=== PATIENT | female | born 1960 | race Caucasian/White ===

== ENCOUNTER 2019-12-03 08:15 | Outpatient (CLI) | payer OTHER, SELFPAY ==
--- NOTE | ~2019-12-03 | MM_ITS ---
EXAMINATION: MM screening [facility] BI w alee HISTORY: Screening mammogram TECHNIQUE: Craniocaudal and mediolateral oblique 3-D tomosynthesis images were obtained and synthetic 2-D images were generated. CAD analysis was submitted and interpreted. COMPARISON: 08/08/2017, 07/04/2016, 07/04/2014, 06/20/2014 BREAST PARENCHYMAL COMPOSITION: The breasts are heterogeneously dense, which may obscure small masses . FINDINGS: There is no evidence of suspicious mass, calcification, or architectural distortion to sugg est malignancy in either breast. There has been no suspicious interval change. IMPRESSION: 1. No mammographic evidence of malignancy. 2. Recommend routine screening mammography in one year. BI-RADS Category 1: Negative Reviewed, dictated and finalized at location A.
== END 2019-12-03 08:16 | disposition home or self-care (01) ==
LOC: ANHIMG 08:17
PROVIDERS: PCP Family Medicine; Visit Provider Family Medicine
DX: Z12.31 Encounter for screening mammogram for malignant neoplasm of breast (principal)
CPT/HCPCS: 77063; 77067

== ENCOUNTER 2020-12-04 07:24 | Outpatient (CLI) | payer OTHER, SELFPAY ==
--- NOTE | ~2020-12-04 | MM_ITS ---
EXAMINATION: MM screening [facility] BI w alee HISTORY: Screening mammogram TECHNIQUE: Craniocaudal and mediolateral oblique 3-D tomosynthesis images were obtained and synthetic 2-D images were generated. CAD analysis was submitted and interpreted. COMPARISON: 12/03/2019, 08/08/2017, 07/04/2016 BREAST PARENCHYMAL COMPOSITION: There are scattered areas of fibroglandular density. FINDINGS: There is no evidence of suspicious mass, calcification, or architectural distortion to sugg est malignancy in either breast. There has been no suspicious interval change. IMPRESSION: 1. No mammographic evidence of malignancy. 2. Recommend routine screening mammography in one year. BI-RADS Category 1: Negative Reviewed, dictated and finalized at location A.
== END 2020-12-04 07:25 | disposition home or self-care (01) ==
LOC: ANHIMG 07:26
PROVIDERS: PCP Family Medicine; Visit Provider Family Medicine
DX: Z12.31 Encounter for screening mammogram for malignant neoplasm of breast (principal)
CPT/HCPCS: 77063; 77067

== ENCOUNTER 2022-02-04 00:27 | Day surgery (SDC) | payer OTHER, SELFPAY ==
[2022-01-21 08:19] VITALS: BMI 27.4
--- NOTE | 2022-02-03 10:46 | WPDANESEPPF ---
Anes - Initial Pre Proc Eval Procedure: Operation Date: 02/04/22 10:45 Proposed Procedures p Screening Colonoscopy - Melecio Phillips MD Date/Time: 02/03/22 10:46 Surgeon: Melecio Phillips MD Pre Op Diagnosis: neoplasm screening Patient Data Age: 61 Gender: F Height: 1.68 m Weight: 77.2 kg Allergies Allergy/AdvReac Type Severity Reaction Status Date / Time sulfamethizole Allergy Unknown Hives Verified 02/04/22 09:15 trimethoprim Allergy Unknown Hives Verified 02/04/22 09:15 sertraline AdvReac Intermediate abdominal Verified 02/04/22 09:15 pain,diarrhea Home Medications Medication Instructions Recorded Confirmed Type atorvastatin 20 mg tablet See Rx Instructions .Route 01/12/21 01/21/22 Rx .COMPLEX #90 tabs estradiol 0.01% (0.1 mg/gram) See Rx Instructions .Route 02/16/21 01/21/22 Rx vaginal cream .COMPLEX #42.5 grams multivitamin (Daily Multi-Vitamin 1 tablet PO DAILY 12/21/21 01/21/22 History tablet) Patient hx anesthesia problems: none Family hx anesthesia problems: none Results Review: All pre-operative results and documents have been reviewed as part of the pre-operative evaluation. [facility] Past Medical History Medical History Adhesive capsulitis of right shoulder Cervical polyp 9.24.20 expelled / exam normal History of ectopic History of multiple miscarriages Hyperlipidemia Migraines Pneumonia Surgical History Surgical History H/O dilation and curettage Family History Family History Grandparent Diabetes mellitus Father Depression Family history of elevated blood lipids Family history of Alzheimer's disease Mother Patient's mother is in good health Other Family history of malignant neoplasm of breast Social History Social History Smoking status: Never smoker Second hand tobacco smoke exposure: No Alcohol intake: current Substance use: never Substance use type: does not use Living arrangements: with family Spiritual care concerns: No Anes - Eval Final PreProcedure Day of Procedure 02/03/22 10:46 Patient weight: overweight Heart: regular rate and rhythm Lungs: clear to auscultation Airway: Mallampati scale class II Neurological: alert and oriented Last oral intake: >/= 8 hours ASA classification: II Emergent: no Anesthetic plan: proceed Anesthesia type and monitoring: general GIVS and standard monitoring Results Review: All pre-operative results and documents have been reviewed as part of the pre-operative evaluation. Informed Consent: The patient's anesthetic plan and its attendant risks and benefits were discussed with the patient/family/POA. Questions were solicited and answers provided to the satisfaction of the patient/family/POA.
[2022-02-04 09:17] VITALS: BP 111/80; PULSE 78; RESP 20; TEMP 36.1; O2SAT 100; BMI 27.2
[2022-02-04] MEDS: LACTATED RINGERS 1,000 ML 150 ML IV CONT (09:27)
--- NOTE | 2022-02-04 10:11 | PM.HPGS ---
History of Present Illness History of Present Illness Consent: Risks, benefits, and alternatives have been discussed and questions answered. Patient agrees to proceed with procedure. Chief complaint: neoplasm screening Narrative: Alejandra Rosales is a 61 year old female here for screening colonoscopy, last one 10 years ago Review of Systems Constitutional: Constitutional: Denies headache(s) and Denies weakness Eyes: Eyes: Denies blurry vision ENT: Reports Normal hearing present, Denies headache(s) and Denies neck pain Cardiovascular: Cardiovascular: Denies chest pain and Denies dyspnea Respiratory: Respiratory: Denies dyspnea Gastrointestinal: Gastrointestinal: Reports no additional gastrointestinal complaints Genitourinary: Genitourinary: Denies dysuria Musculoskeletal: Musculoskeletal: Denies neck pain Integumentary/Breasts: Skin/Breast: Denies dry skin Neurologic: Reports Normal hearing present, Denies headache(s) and Denies weakness Psychiatric: Psychiatric: Denies anxiety Endocrine: Endocrine: Denies change in body appearance Hematologic/Lymphatic: Hematologic/Lymphatic: Denies easy bleeding Allergic/Immunologic: Allergic/Immunologic: Denies urticaria PMFSH Past Medical History Medical History (Updated 02/04/22 @ 10:11 by Melecio Phillips MD) Adhesive capsulitis of right shoulder Cervical polyp 9.24.20 expelled / exam normal Colon cancer screening History of ectopic History of multiple miscarriages Hyperlipidemia Migraines Pneumonia Surgical History Surgical History H/O dilation and curettage Family History Family History Grandparent Diabetes mellitus Father Depression Family history of elevated blood lipids Family history of Alzheimer's disease Mother Patient's mother is in good health Other Family history of malignant neoplasm of breast Social History Social History Smoking status: Never smoker Second hand tobacco smoke exposure: No Alcohol intake: current Substance use: never Substance use type: does not use Living arrangements: with family Spiritual care concerns: No Meds Home Medications and Allergies Home Medications Medication Instructions Recorded Confirmed Type atorvastatin 20 mg tablet See Rx Instructions .Route 01/12/21 01/21/22 Rx .COMPLEX #90 tabs estradiol 0.01% (0.1 mg/gram) See Rx Instructions .Route 02/16/21 01/21/22 Rx vaginal cream .COMPLEX #42.5 grams multivitamin (Daily Multi-Vitamin 1 tablet PO DAILY 12/21/21 01/21/22 History tablet) Allergies Allergy/AdvReac Type Severity Reaction Status Date / Time sulfamethizole Allergy Unknown Hives Verified 02/04/22 09:15 trimethoprim Allergy Unknown Hives Verified 02/04/22 09:15 sertraline AdvReac Intermediate abdominal Verified 02/04/22 09:15 pain,diarrhea Vital Signs Vital Signs - 24 hr 02/04/22 09:17 Temperature 97.0 F L Pulse Rate 78 Respiratory Rate 20 Blood Pressure 111/80 Pulse Oximetry 100 Oxygen Delivery Room Air Exam Const: General: comfortable and no acute distress HENMT: General nose exam: Normal nares present Eyes: General: appearance normal, both eyes and all related structures Neck: Neck: no JVD Resp: Auscultation: clear to auscultation bilaterally Cardio: Rate: regular rate Rhythm: regular rhythm GI: Inspection: non-distended GI Palp: Yes Soft to palpation Skin: General skin exam: normal color Neuro: General: gait normal Speech: normal speech Extrem: General: normal to inspection Psych: Mental Status: mental status grossly normal Assessment and Plan Assessment and plan (1) Colon cancer screening: Code(s): Z12.11 - Encounter for screening for malignant neoplasm of colon Status: Acute Asses
[2022-02-04 10:36] VITALS: BP 87/59; PULSE 65; RESP 20; O2SAT 97
[2022-02-04 10:46] VITALS: BP 96/63; PULSE 58; RESP 19; O2SAT 96
[2022-02-04 10:56] VITALS: BP 102/74; PULSE 60; RESP 15; O2SAT 100
== END 2022-02-04 11:11 | disposition home or self-care (01) ==
PROVIDERS: PCP Family Medicine; Visit Provider Internal Medicine Gastroenterology
PROC: 0DJD8ZZ Inspection of Lower Intestinal Tract, Via Natural or Artificial Opening Endoscopic (ICD-10-PCS; CPT 45378; principal; 2022-02-04 10:45)
DX: Z12.11 Encounter for screening for malignant neoplasm of colon (principal); K63.5 Polyp of colon; K64.8 Other hemorrhoids; E78.5 Hyperlipidemia, unspecified
CPT/HCPCS: 45385; 88305; J2001; J2704; J7120

== ENCOUNTER 2022-07-20 09:42 | Outpatient (CLI) | payer BC, SELFPAY ==
--- NOTE | ~2022-07-20 | MM_ITS ---
EXAMINATION: MM screening [facility] BI w alee HISTORY: Screening mammogram TECHNIQUE: Craniocaudal and mediolateral oblique 3-D tomosynthesis images were obtained and synthetic 2-D images were generated. CAD analysis was submitted and interpreted. COMPARISON: 12/04/2020, 12/03/2019, 08/08/2017 bilateral screening mammogram examinations BREAST PARENCHYMAL COMPOSITION: The breasts are heterogeneously dense, which may obscure small masses . FINDINGS: There is no evidence of suspicious mass, calcification, or architectural distortion to sugg est malignancy in either breast. There has been no suspicious interval change. IMPRESSION: 1. No mammographic evidence of malignancy. 2. Recommend routine screening mammography in one year. BI-RADS Category 1: Negative Reviewed, dictated and finalized at location A. OR INSPECTOR
--- NOTE | ~2022-07-20 | DEXA_ITS ---
Bone Density Report Name: JOYA RAO Age: 62 Sex: Female Ethnicity: White Date of : 1960 Indication: postmenopausal; screening for osteoporosis; Referring Provider: OCTAVIO BURNS Study: Bone densitometry was performed. Exam Date: July 20, 2022 Accession number: [id number] Bone Density: Region BMD T-score Z-score Classification AP Spine(L1-L4) 0.930 -1.1 0.4 Osteopenia Femoral Neck (Left) 0.754 -0.9 0.5 Normal Total Hip (Left) 0.994 0.4 1.4 Normal Femoral Neck (Right) 0.747 -0.9 0.4 Normal Total Hip (Right) 0.985 0.4 1.4 Normal Total Hip Mean 0.990 0.4 1.4 Normal World Health Organization criteria for BMD impression classify patients as: Normal (T-score at or above -1.0), Osteopenia (T-score between -1.0 and -2.5), or Osteoporosis (T-score at or below -2.5). 10-year Fracture Risk(1): Major Osteoporotic Fracture 7.2% Hip Fracture 0.4% Reported Risk Factors: [place] (), Neck BMD=0.754, BMI=28.2 (1) FRAX(R) Version 3.08. Fracture probability calculated for an untreated patient. Fracture probability may be lower if the patient has received treatment. Clinical Information Provided by Patient: Patient maximum height was 67 Menopause Age: 60 No regular weight bearing exercise Does not regularly consume dairy products Drinks caffeinated beverages Onset of menses at age 17 Number of children 0 Missed period for more than 6 months in a row Impression: The patient has low bone mass, based on the Total Spine T-score. The patient has an estimated ten-year risk of hip fracture of 0.4% and an estimated ten-year risk of major fracture of 7.2%, based on the WHO FRAX algorithm. Discussion: BONE DENSITY IS LOW AT ONE OR MORE SKELETAL SITES. This patient's lowest T-score is low at one or more skeletal sites. It meets the World Health Organization's (WHO) criteria for ?low bone mass? (T-score between -1.0 and -2.5). The patient's 10-year risk of fracture as calculated by FRAX is less than the threshold where pharmacological therapy is recommended by the National Osteoporosis Foundation (NOF). However, all treatment decisions require clinical judgment and consideration of individual patient factors, including patient preferences, comorbidities, previous drug use, risk factors not captured in the FRAX model (e.g., frailty, falls, vitamin D deficiency, increased bone turnover, interval significant decline in bone density) and possible under or overestimation of fracture risk by FRAX. The patient should follow a healthful lifestyle (good nutrition with adequate calcium and vitamin D, and appropriate weight-bearing exercise). Follow-Up: Consider repeating this study in 2 to 3 years to reassess this patient's status, or sooner if there is some new clinical indication.
== END 2022-07-20 09:43 | disposition home or self-care (01) ==
LOC: ANHIMG 09:48
PROVIDERS: PCP Family Medicine; Visit Provider Student in an Organized Health Care Education/Training Program
DX: Z12.31 Encounter for screening mammogram for malignant neoplasm of breast (principal); Z78.0 Asymptomatic menopausal state; M85.88 Other specified disorders of bone density and structure, other site
CPT/HCPCS: 77063; 77067; 77080

== ENCOUNTER 2023-07-31 15:05 | Outpatient (CLI) | payer BC, SELFPAY ==
--- NOTE | ~2023-07-31 | MM_ITS ---
EXAMINATION: MM screening [facility] BI w alee HISTORY: Screening mammogram TECHNIQUE: Craniocaudal and mediolateral oblique 3-D tomosynthesis images were obtained and synthetic 2-D images were generated. CAD analysis was submitted and interpreted. COMPARISON: 07/20/2022, 12/04/2020, 12/03/2019 bilateral screening mammogram examinations BREAST PARENCHYMAL COMPOSITION: The breasts are heterogeneously dense, which may obscure small masses . FINDINGS: There is no evidence of suspicious mass, calcification, or architectural distortion to sugg est malignancy in either breast. There has been no suspicious interval change. IMPRESSION: 1. No mammographic evidence of malignancy. 2. Recommend routine screening mammography in one year. BI-RADS Category 1: Negative Reviewed, dictated and finalized at location A.
== END 2023-07-31 15:06 | disposition home or self-care (01) ==
LOC: ANHIMG 15:08
PROVIDERS: PCP Family Medicine; Visit Provider Family Medicine
DX: Z12.31 Encounter for screening mammogram for malignant neoplasm of breast (principal)
CPT/HCPCS: 77063; 77067

== ENCOUNTER 2023-08-04 07:59 | Outpatient (CLI) | payer BC, SELFPAY ==
[2023-08-04 14:51] LABS: Alanine Aminotransferase 46 U/L (6-35); Albumin Level 4.1 g/dL (3.5-5.1); Alkaline Phosphatase 87 U/L (38-126); Anion Gap 5 mmol/L (8-16); Aspartate Amino Transferase 64 U/L (14-36); Bilirubin,Total 0.7 mg/dL (0.2-1.3); Blood Urea Nitrogen 17 mg/dL (7-17); Carbon Dioxide 28 mmol/L (22-30); Chloride 108 mmol/L (98-107); Cholesterol 202 mg/dL (0-200); Estimated Glomerular Filt Rate > 60; Glucose 97 mg/dL (65-110); HDL Direct 41 mg/dL; Potassium 4.4 mmol/L (3.4-5.0); Sodium 141 mmol/L (137-145); Triglycerides 269 mg/dL (<150)
[2023-08-04 15:11] LABS: Basophils Absolute Auto 0.1 K/mm3 (0.0-0.1); Basophils Percent Auto 0.6 % (0.2-1.2); Eosinophils Absolute Auto 0.2 K/mm3 (0-0.3); Eosinophils Percent Auto 2.1 % (0-4.4); Hematocrit 44.3 % (37.0-47.0); Hemoglobin 13.9 g/dL (12.0-15.0); Immature Granulocyte Absolute 0.04 K/mm3 (0.00-0.031); Immature Granulocyte Percent A 0.5 % (0-0.5); Lymphocytes Absolute Auto 2.85 K/mm3 (0.9-3.2); Lymphocytes Percent Auto 35.4 % (18.3-44.2); Mean Corpuscular HGB Conc 31.4 g/dl (32-36); Mean Corpuscular Hemoglobin 30.8 pg (26-34); Mean Corpuscular Volume 98.2 fl (80-100); Mean Platelet Volume 9.3 fl (7.4-10.4); Monocytes Absolute Auto 0.6 K/mm3 (0.1-0.6); Monocytes Percent Auto 7.2 % (2.6-8.5); Neutrophils Absolute Auto 4.4 K/mm3 (1.3-6.7); Neutrophils Percent Auto 54.2 % (45.5-73.1); Platelet Count Result 290 k/mm3 (150-375); Red Blood Count 4.51 M/mm3 (4.2-5.4); Red Cell Distribution Width 13.9 % (11.5-14.5); White Blood Count 8.1 K/mm3 (4.5-10.0)
[2023-08-04 15:38] LABS: Hepatitis C Virus Antibody Negative (Negative)
[2023-08-04 17:06] LABS: LDL Cholesterol Direct 104 mg/dL
== END 2023-08-04 08:00 | disposition home or self-care (01) ==
LOC: ANHGOSHLAB 08:01
PROVIDERS: PCP Family Medicine; Visit Provider Family Medicine
DX: Z00.00 Encounter for general adult medical examination without abnormal findings (principal); Z78.0 Asymptomatic menopausal state; Z11.59 Encounter for screening for other viral diseases
CPT/HCPCS: 36415; 80053; 80061; 82306; 82607; 85025; 86803

== ENCOUNTER 2023-08-11 07:41 | Outpatient (CLI) | payer BC, SELFPAY ==
--- NOTE | ~2023-08-11 | US_ITS ---
Limited Abdominal Sonogram: Real-time sonographic imaging of the right upper quadrant was performed. Clinical History: Abnormal lab work Findings: The liver appears mildly echogenic slightly heterogeneous, with no evidence of mass lesion or bile duct dilatation. Main portal vein demonstrates normal direction of flow. The gallbladder is well distended, and appears normal with no evidence of gallstone or wall thickening. The common bile duct measures 4 mm. The visualized pancreas, aorta, and IVC are unremarkable. Impression: Suspected fatty infiltration of liver versus possibly other chronic liver disease. Correlate clinical ly. Reviewed, dictated and finalized at location M. Impression: Suspected fatty infiltration of liver versus possibly other chronic liver disea se. Correlate clinically.
== END 2023-08-11 07:42 ==
PROVIDERS: PCP Family Medicine; Visit Provider Family Medicine
DX: R79.89 Other specified abnormal findings of blood chemistry (principal)
CPT/HCPCS: 76705

== ENCOUNTER 2023-09-13 09:00 | Outpatient (RCR) | payer BC, SELFPAY ==
--- NOTE | 2023-08-15 16:37 | OPREHPOC ---
Outpatient Therapy Plan of Care This is a Multidisciplinary Plan of Care that may contain components documented by all disciplines (PT, OT, and ST.) PT Problem 1 PT Problem #1 Knowledge Deficit PT Goal 1 Goal Pt to be IND with issued HEP Target Visit 8 PT Problem 2 PT Problem #2 Impaired Strength PT Goal 1 Goal Pt to demonstrate a functional lift and carry with 20lb without an increase in symptoms. Target Visit 8 PT Goal 2 Goal Pt to demonstrate a functional squat without compensations. PT Problem 3 PT Problem #3 Impaired Functional Mobil PT Goal 1 Goal Pt to report no increase in pain with stair navigation. PT Problem 4 PT Problem #4 Impaired Flexibility PT Goal 1 Goal Pt to improve prone knee flexion to 120 deg Target Visit 8
--- NOTE | 2023-08-15 16:37 | PTOPEVAL1 ---
Assessment and note entered by Wally Lin, PT, DPT Evaluation Information Assessment Status Evaluation Diagnosis pino knee pain Subjective Information Pt reports pino knee pain when she is squatting to pick something up or when she works in the garden. She states both knees are achy when she is squatting. States her knees have given out multiple times recently, once resulting in a fall. She states her L knee is crunchy. The most limiting thing is going up and down the stairs. Reported Pain Level Pain Score 0: Self Report Assessment PT Clinical Summary Alejandra presents to therapy today for her initial evaluation with a diagnosis of pino knee pain. Today she demonstrates hip flexor tightness, hip and knee weakness, and decreased body awareness contributing to poor movement patterns. She demonstrates poor body mechanics with functional squatting and sit to stand transfers. Skilled therapy services are indicated to address the deficits noted above, to manage pain, and to improve overall functional mobility. Plan of Care Interventions Electrical Stimulation,Gait Training,Hot Pack/Cold Pack,Manual Therapy,Neuro Re-education,Patient/ Caregiver Educati,Therapeutic Activities, Therapeutic Exercise PT Services Indicated Yes Treatment Frequency and 2x/wk for 8 visits Duration These treatments will address the objective and functional deficits as defined above. The patient will be advanced safely and appropriately in order for the patient to progress towards his/her prior level of function. Additional exercises will be introduced and as well as a comprehensive home exercise program upon discharge, if needed, ?to ensure carryover of functional gains achieved in the clinic. This treatment plan has been reviewed and agreement upon by the patient.
--- NOTE | 2023-09-13 09:56 | PTOPDC ---
Assessment and note entered by Wally Lin, PT, DPT Evaluation Information Assessment Status Discharge Diagnosis pino knee pain Subjective Information Pt states overall her knee is improving. She was able to work on 4 hours a yard work yesterday without pain. She does report increased muscle soreness today however. Pt states stairs still continue to be her largest limitation but they are progressing well. She has noticed less clicking and popping in her knees as well. Reported Pain Level Pain Score 0,1: Self Report Assessment PT Clinical Summary Alejandra presents to therapy today for her progress report following 8 visits of skilled therapy to treat her diagnosis of pino knee pain. Today she demonstrates improved hip and knee strength but still demonstrates some functional limitations d/t weakness on the L. She demonstrates improved body mechanics and awareness with has assisted with ADLs like yard work. She is making good progress towards her therapy goals and would like to continue working on her HEP IND.
== END 2023-09-13 13:09 | disposition home or self-care (01) ==
LOC: ANHGOSHPT 09:00
PROVIDERS: PCP Family Medicine; Visit Provider Family Medicine
DX: M25.561 Pain in right knee (principal); M25.562 Pain in left knee
CPT/HCPCS: 97110; 97140; 97161; 97530

== ENCOUNTER 2024-11-27 15:04 | Outpatient (CLI) | payer BC, SELFPAY ==
--- NOTE | ~2024-11-27 | MM_ITS ---
EXAMINATION: MM screening [facility] BI w alee HISTORY: Screening TECHNIQUE: Craniocaudal and mediolateral oblique 3-D tomosynthesis images were obtained and synthetic 2-D images were generated. CAD analysis was submitted and interpreted. COMPARISON: Comparison to multiple prior studies sequentially, with oldest reviewed study dated 07/04. BREAST PARENCHYMAL COMPOSITION: Not dense: There are scattered areas of fibroglandular density. FINDINGS: There is no evidence of suspicious mass, calcification, or architectural distortion to sugg est malignancy in either breast. There has been no suspicious interval change. IMPRESSION: 1. No mammographic evidence of malignancy. 2. Recommend routine screening mammography in one year. BI-RADS Category 1: Negative Reviewed, dictated and finalized at location A.
--- OUTSIDE RECORDS SUMMARY | 2024-11-27 15:08 | XMS_ITS | Referral Summary ---
Author Organization [facility] [place] [address] Address [address] [place] [address] Care Team Providers Care Ammunition Components Inspector Name Role Phone Evon Miranda MD Primary Care Provider + Active Problems Problem Noted Date Diagnosed Date Abnormal findings on diagnostic imaging of breas t 07/09/2014 Social History Tobacco Use Types Packs/Day Years Used Date Smoking Tobacco: Never Personal Safety Answer Date Recorded Getting School Help Needed Not on file 08/04 Comments Unknown Sex and Gender Information Value Date Recorded Sex Assigned at Not on file 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
--- OUTSIDE RECORDS SUMMARY | 2024-11-27 15:08 | XMS_ITS | Clinical Summary ---
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
== END 2024-11-27 15:05 | disposition home or self-care (01) ==
LOC: ANHIMG 15:06
PROVIDERS: PCP Family Medicine; Visit Provider Family Medicine
DX: Z12.31 Encounter for screening mammogram for malignant neoplasm of breast (principal)
CPT/HCPCS: 77063; 77067

== ENCOUNTER 2024-12-03 08:26 | Outpatient (CLI) | payer BC, SELFPAY ==
[2024-11-25 14:38] VITALS: BMI 29.1
--- NOTE | 2024-11-25 14:39 | PC.NURSE ---
Pre Radiology instructions Report to the outpatient bill karla on date _[id number]_ at time _0830_ for procedure Time: _1030_ YOU MAY BE MONITORED AT HOSPITAL FOR UP TO 4 HOURS AFTER YOUR PROCEDURE. A visitor will be allowed to accompany the patient into the hospital. You and your visitor will be asked to self-screen and do not enter if you have any COVID symptoms. A mask is OPTIONAL within the hospital. Patients are to have no food or drink 6 hours prior to procedure time Driving will be restricted after the procedure, you must have a person to drive you home. Labs will be drawn in preop area and once reviewed, you will be taken to radiology area for procedure. When the procedure is completed, you will be taken to outpatient where you will be monitored for several hours. You may have one visitor in this area. Other than holding anti-coagulants, patient may take other medication(s) as scheduled. Prior to your appointment date patients are instructed to hold anti-coagulants after discussing with ordering provider to stop. If unable to discontinue anti-coagulants please notify radiologist. ? No aspirin or warfarin (Coumadin) for 7 days prior to the procedure. ? No clopidogrel (Plavix), ticagrelor (Brilinta), prasugrel (Effient) or dabigatran (Pradaxa) for 5 days prior to the procedure. ? No rivaroxaban (Xarelto), apixaban (Eliquis), dipyridamole (Aggrenox or Persantine) or cilostazol (Pletal) for 2 days prior to the procedure. Medications to discontinue per physician: __None Date to take last dose: Please leave all valuables, including medications, at home the day of procedure. The hospital will not accept responsibility for valuables. Wear comfortable, loose fitting clothing.? Follow any additional instructions given to you from ordering provider. Telephone instructions given to __Aliee__and asked if any additional questions and then verbalized understanding. Patient advised to call scheduling provider office or registration scheduling [phone] if any additional questions.
[2024-12-03] VITALS (10 sets, daily range): BP systolic 120–137; BP diastolic 62–82; PULSE 55–68; RESP 14–16; TEMP 37; O2SAT 94–100; BMI 29.0
--- NOTE | ~2024-12-03 | US_ITS ---
EXAMINATION: US biopsy liver DATE: 12/03/2024 10:45 INDICATION: Possible autoimmune hepatitis TECHNIQUE: The procedure including the risks and benefits was discussed with the patient. Risks discu ssed included bleeding and infection. The patient understood the risks and agreed to proceed. The sk in overlying the liver was prepped and draped in usual sterile fashion. Anesthetic was administered with 1% lidocaine subcutaneously. An 18 gauge core biopsy needle was advanced under continuous ultra sound observation to the lesion of interest. 3 core biopsy specimens were obtained. The needle was removed and the entry site was cleaned and dressed. Post procedure ultrasound demonstrated no hemorr shilpa. FINDINGS: Ultrasound images demonstrate biopsy needle advanced into the left hepatic lobe. IMPRESSION: 1. Successful Ultrasound-guided random liver biopsy. Reviewed, dictated and finalized at location A.
--- OUTSIDE RECORDS SUMMARY | 2024-12-03 08:36 | XMS_ITS | Referral Summary ---
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
--- OUTSIDE RECORDS SUMMARY | 2024-12-03 08:36 | XMS_ITS | Clinical Summary ---
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
[2024-12-03 09:20] LABS: Platelet Count Result 244 k/mm3 (150-375)
[2024-12-03 09:38] LABS: INR 0.9; Prothrombin Time 12.3 Seconds (11.1-14.7)
--- NOTE | 2024-12-03 10:30 | S_PTH ---
PATIENT: Alejandra Rosales LOC: [facility]#:[id number] AGE/SX: 64/F ROOM: RE12/03/[address]: Denton Puckett MD : 1960 BED: DIS: 12/03/2024 SPEC #: [id number] RECD: 12/03/24 10:50 STATUS: INESSA REQ #: [id number] NAVDEEP: 12/03/24 10:[address]: Heidi Ochoa DEPT: [facility] Surgical RECD BY: Caryl Riggs ENTERED: 12/03/24 10:50 SP TYPE: Surgical OTHR DR: MD Benigno Hale MD Tissues: A - Liver Biopsy Procedures: Pas with Diastase Unstained Slides Hematoxylin and Eosin Stain Reticulum Stain Trichrome Stain Gross and Microscopic Level 5 Iron Stain
== END 2024-12-03 14:30 | disposition home or self-care (01) ==
PROVIDERS: PCP Family Medicine; Referring Provider Nurse Practitioner; Visit Provider Radiology Diagnostic Radiology
PROC: BF45ZZZ Ultrasonography of Liver (ICD-10-PCS; CPT 47000; principal; 2024-12-03 10:30)
DX: Z01.818 Encounter for other preprocedural examination (principal); K76.0 Fatty (change of) liver, not elsewhere classified; R79.89 Other specified abnormal findings of blood chemistry; R74.01 Elevation of levels of liver transaminase levels; R76.8 Other specified abnormal immunological findings in serum
CPT/HCPCS: 36415; 47000; 76942; 85049; 85610; 88307; 88312; 88313

== ENCOUNTER 2025-03-17 13:52 | Day surgery (SDC) | payer BC, SELFPAY ==
[2025-03-17] VITALS (12 sets, daily range): BP systolic 122–155; BP diastolic 64–91; PULSE 72–85; RESP 16–20; TEMP 36.3–36.7; O2SAT 97–100
--- NOTE | ~2025-03-17 | XR_ITS ---
EXAMINATION: XR chest 2V, 03/17/2025 15:38 CDT HISTORY: Abdominal pain COMPARISON: No comparisons available. Technique: 2 views obtained. Findings: The lungs are clear, no effusion. No pneumothorax. Heart is normal size. Mediastinal and hilar contours are within normal limits. Bony thorax no acute abnormality. Impression: No acute cardiopulmonary abnormality. Reviewed, dictated and finalized at location P. Impression: No acute cardiopulmonary abnormality.
--- NOTE | ~2025-03-17 | CT_ITS ---
Exam: CT abdomen and pelvis with contrast Clinical History: [Right lower quadrant abdominal pain. ] Comparison: [ None available] Technique: Multiple axial CT images of the abdomen and pelvis were obtained with IV contrast. Sagittal and coronal reformatted images were obtained. FINDINGS: Lung bases: [Small opacities in the lower lungs. ] There is a 5 mm noncalcified pulmonary nodule in the right lower lobe. A chest CT is recommended. Liver: [ No mass.] [ No intrahepatic biliary duct dilatation.] Fatty liver. Gallbladder: [ No wall thickening or stones.] Common bile duct: [ Normal caliber.] [ No stones.] Spleen: [ Within normal limits.] Pancreas: [ No mass. No pancreatic fluid collection.] Adrenals: [ No masses.] Kidneys: [ No masses. No hydronephrosis.][ ] Lymph nodes: [ No adenopathy in the abdomen or pelvis.] Stomach, small bowel and colon: Appendix is thickened measuring 1.0 cm with a small amount of fat stranding. CT findings are concerning for acute appendicitis. Moderate amount of stool. Peritoneum cavity: [ No mesenteric fat stranding or fluid.] Bladder: [ Unremarkable.] Osseous structures: [ No acute fracture or destructive lesion.] [ Multilevel degenerative change in the visualized spine.] Abdominal aorta: [ No aneurysm.] Additional findings: The breasts are heterogeneously dense and nodular. Consider a mammogram and breast ultrasound. IMPRESSION: 1. Appendix is thickened measuring 1.0 cm with a small amount of fat stranding. CT findings are concerning for acute appendicitis. 2. Fatty liver. 3. There is a 5 mm noncalcified pulmonary nodule in the right lower lobe. A chest CT is recommended. If symptoms persist or worsen, consider a short-term follow-up study or additional imaging for further assessment. Reviewed, dictated and finalized at location Q. IMPRESSION: 1. Appendix is thickened measuring 1.0 cm with a small amount of fat stranding. CT findings are concerning for acute appendicitis. 2. Fatty liver. 3. There is a 5 mm noncalcified pulmonary nodule in the right lower lobe. A dom st CT is recommended. If symptoms persist or worsen, consider a short-term follow-up study or additio nal imaging for further assessment.
--- NOTE | 2025-03-17 15:04 | ED.ABDPAIN ---
HPI - Abdominal Pain General Chief Complaint: Abdominal Pain Stated Complaint: RLQ pain since this am. Nausea Time Seen by Provider: 03/17/25 15:26 Focused HPI: This AM at 1000, acute onset of RLQ abdominal pain. + Nausea, and sour stomach. No Vomiting or diarrhea. No fevers. Pain radiates from RLQ to groin. No urinary complaints. Movement makes it worse and the pain is sharp in nature. Has taken Tums without any relief. Pain is intermittent and same intensity. Reminds her of when she had an ectopic and had a unilateral salpingo-ooperectomy. No other acute abdominal surgeries. GENERAL: Well-appearing, well-nourished, and in no acute distress. HEAD: Normocephalic, atraumatic. CHEST: Clear to auscultation. ?No respiratory distress. HEART: Regular rate and rhythm.? ABDOMEN: Diffusely tender, worse in RLQ. + Guarding, no rebound. + Peritoneal sign with pain on the right side of the abdomen with palpation of the left side of the abdomen. NEURO: ?Alert and oriented x3. Patient screened in triage and initial orders placed.? ?Additional care and disposition to be based upon?diagnostic testing and treatment. Source: patient Mode of arrival: ambulatory Limitations: no limitations Related Data Home Medications ?Medication ?Instructions ?Recorded ?Confirmed ?Last Taken ?Type multivitamin (Daily Multi-Vitamin 1 tablet PO DAILY 12/21/21 02/25/25 02/03/22 History tablet) ascorbic acid (vitamin C) 1,000 mg 1 g PO DAILY 08/03/23 02/25/25 Unknown History capsule cholecalciferol (vitamin D3) 50 50 mcg PO DAILY 08/03/23 02/25/25 Unknown History mcg (2,000 unit) capsule mecobalamin (vitamin B12) 5,000 5,000 mcg PO DAILY 08/07/24 02/25/25 Unknown History mcg chewable tablet Allergies Allergy/AdvReac Type Severity Reaction Status Date / Time sulfamethizole Allergy Unknown Hives Verified 03/17/25 15:36 trimethoprim Allergy Unknown Hives Verified 03/17/25 15:36 clindamycin AdvReac Severe contact Verified 03/17/25 15:36 dermatitis/clindamycin phosphate sertraline AdvReac Intermediate abdominal Verified 03/17/25 15:36 pain,diarrhea PMFSH Past Medical History Medical History Mixed hyperlipidemia Metabolic dysfunction-associated fatty liver disease (MAFLD) 3..24 u/s Bilateral knee pain Seborrheic keratoses, inflamed Adhesive capsulitis of right shoulder Hyperlipidemia Migraines Pneumonia History of multiple miscarriages History of ectopic Cervical polyp 9.24.20 expelled / exam normal Surgical History Surgical History H/O dilation and curettage Family History Family History Grandparent Diabetes mellitus Father Depression Family history of elevated blood lipids Family history of Alzheimer's disease Mother Patient's mother is in good health Sibling Breast cancer Other Family history of malignant neoplasm of breast Social History Social History Smoking status: Never smoker Second hand tobacco smoke exposure: No Alcohol intake: never Substance use: never Substance use type: does not use Do You Feel Safe in your Home?: Yes Lack of Transportation: No Lack of Food: Never True Current Housing: I Have Housing Concerned About Future Housing: No Difficulty Paying Gas/Electric Bills: No Difficulty Paying for Meds: No Currently Unemployed: No Education: High School Diploma/GED Living arrangements: with family Spiritual care concerns: No Course Vital Signs Vital signs: Vital Signs Temperature 97.4 F L 03/17/25 14:15 Pulse Rate 78 03/17/25 14:15 Respiratory Rate 16 03/17/25 14:15 Blood Pressure 146/89 H 03/17/25 14:15 Pulse Oximetry 99 03/17/25 14:15 Oxygen Delivery Room Air 03/17/25 14:15 Temperature 98.0 F 03/17/25 19:12 Pulse Rate 75 03/17/25 21:00 Respiratory Rate 20 03/17/25 19:45 Blood Pressure 125/69 03/17/25 21:00 Pulse Oximetry 98 03/17/25 20:00 Oxygen Delivery Room Air 03/17/25 21:00 Oxygen Flow Rate 8 03/17/25 19:30 MDM - Abdominal Pain Lab Data 03/17/25 15:42 03/17/25 15:54 Labs: Lab Results 10/27/25 10/27/25 Range/Units 15:42 15:54 WBC 16.8 H (4.5-10.0) K/mm3 RBC 4.80 (4.2-5.4) M/mm3 Hgb 14.7 (12.0-15.0) g/dL Hct 44.4 (37.0-47.0) % MCV 92.5 (80-100) fl MCH 30.6 (26-34) pg MCHC 33.1 (32-36) g/dl RDW 13.5 (11.5-14.5) % Plt Count 275 (150-375) k/mm3 MPV 8.6 (7.4-10.4) fl Immature Gran % (Auto) 0.4 (0-0.5) % Neut % (Auto) 80.2 H (45.5-73.1) % Lymph % (Auto) 12.6 L (18.3-44.2) % [place] % (Auto) 6.4 (2.6-8.5) % Eos % (Auto) 0.0 (0-4.4) % Baso % (Auto) 0.4 (0.2-1.2) % Lymph # (Auto) 2.12 (0.9-3.2) K/mm3 [place] # (Auto) 1.1 H (0.1-0.6) K/mm3 Eos # (Auto) 0.0 (0-0.3) K/mm3 Baso # (Auto) 0.1 (0.0-0.1) K/mm3 Abs Immat Gran (auto) 0.06 H (0.00-0.031) K/mm3 Absolute Neuts (auto) 13.5 H (1.3-6.7) K/mm3 Absolute Nucleated RBC 0.000 (0.0-0.012) K/mm3 Nucleated RBC % 0.0 (0.0-0.2) % Sodium 137 (137-145) mmol/L Potassium 4.2 (3.4-5.0) mmol/L Chloride 103 (98-107) mmol/L Carbon Dioxide 26 (22-30) mmol/L Anion Gap 8 (4-12) mmol/L BUN 15 (7-17) mg/dL Creatinine 0.77 0.80 (0.7-1.0) mg/dL Estim Creat Clear Calc 67 64 ml/min Estimated GFR > 60 > 60 (59 - ) Glucose 95 (65-110) mg/dL Lactic Acid 1.4 (0.7-2.0) mmol/L Calcium 10.5 H (8.4-10.2) mg/dL Total Bilirubin 0.9 (0.2-1.3) mg/dL AST 63 H (14-36) U/L ALT 65 H (6-35) U/L Alkaline Phosphatase 90 (38-126) U/L Total Protein 8.0 (6.3-8.2) g/dL Albumin 4.7 (3.5-5.1) g/dL Lipase 83 (23-300) U/L Urine Color Yellow (Yellow) Urine Appearance Clear (Clear) Urine pH 6.5 (5.0-9.0) Ur Specific [place] 1.015 (1.001-1.035) Urine Protein Negative (Negative) mg/dL Urine Glucose (UA) Negative (Negative) mg/dL Urine Ketones Negative (Negative) mg/dL Ur Blood (Man) Negative (Negative) Urine Nitrate Negative (Negative) Urine Bilirubin Negative (Negative) Urine Urobilinogen 0.2 (<2.0) mg/dL Leukocyte Esterase Rfl Negative (Negative) SHARI/UL Imaging Data Radiologist's impression: ITS Impressions Chest X-Ray 03/17/25 15:50 Impression: No acute cardiopulmonary abnormality. Abdomen/Pelvis CT 03/17/25 16:32 IMPRESSION: 1. Appendix is thickened measuring 1.0 cm with a small amount of fat stranding. CT findings are concerning for acute appendicitis. 2. Fatty liver. 3. There is a 5 mm noncalcified pulmonary nodule in the right lower lobe. A chest CT is recommended. If symptoms persist or worsen, consider a short-term follow-up study or additional imaging for further assessment. Discharge Plan Discharge Clinical Impression: Acute appendicitis Patient Disposition: Home Condition: Stable Instructions: Antibiotic Form Additional Instructions: DISCHARGE INSTRUCTION SHEET FOR HERNIA, GALLBLADDER AND APPENDIX SURGERIES DR. AGUSTIN PATIENT TO TAKE HOME 1. May shower in 24 hours, no soaking in bath x 2weeks. 2. Call office for: Wound increasingly painful or bleeding Vomiting Fever of greater than 101 degrees 3. If no bowel movement for three days, take 1 oz. (30 ml) Milk of Magnesia or MiraLax 17g 1 to 2 times daily. 4. No heavy lifting > 10-15 pounds x 6 weeks for hernia repairs and 2 weeks for laparoscopic cholecystectomy or appendectomy. 5. No driving for 3 days or while taking narcotic pain medications. 6. Ice to surgical site for 48 hours (30 min on, then 30 min off). 7. Up walking 10-30 minutes three times per day. 8. Resume previous home medications. 9. Follow-up 10-14 days in office for wound check or as previously scheduled. ([id number]) 10. Oral pain medications prescription to be sent to pharmacy. Take Tylenol 500mg every 6 hours and Ibuprofen 600mg every 6 hours for the first 2 days, then as needed. 11. NUTRITION: Start out by drinking fluids and increase your diet as tolerated. If you experience nausea, try dry toast, crackers, and 7-UP. If nausea or vomiting persists, contact your surgeon?s office. 12. Gallbladders-Low Fat Diet for 2 weeks (send care note of low fat diet) 13. Inguinal Hernias-wear scrotal support for 48 hours 14. Abdominal Hernias-if sent home with abdominal binder, wear for the first 2 weeks (may remove to shower or at night to sleep). Revised 05/2020 Patient Language: Armenian Prescriptions: New hydrocodone-acetaminophen 5-325 mg tablet 1 tablet PO Q6H PRN (Reason: pain) Qty: 20 0RF docusate sodium [Colace] 100 mg capsule 100 mg PO BID Qty: 20 0RF Continued multivitamin [Daily Multi-Vitamin] Tablet 1 tablet PO DAILY minocycline 50 mg capsule 50 mg PO DAILY Qty: 90 1RF cholecalciferol (vitamin D3) 50 mcg (2,000 unit) capsule 50 mcg PO DAILY ascorbic acid (vitamin C) 1,000 mg capsule 1 g PO DAILY mecobalamin (vitamin B12) 5,000 mcg tablet,chewable 5,000 mcg PO DAILY terbinafine HCl 250 mg tablet 250 mg PO DAILY Qty: 30 0RF estradiol 0.01 % (0.1 mg/gram) cream See Rx Instructions .ROUTE .COMPLEX Qty: 42.5 3RF Dose Instruction: INSERT 1 GRAM VAGINALLY DAILY FOR 14 DAYS, THEN 1 GRAM VAGINALLY TWICE WEEKLY Rx Instructions: INSERT 1 GRAM VAGINALLY 2 x per week Follow-up/Referrals: Devora Agustin MD [Physician, General Surgery] - 2 Weeks Evon Miranda MD [Primary Care Provider, Family Practice] Stand Alone Forms: General Discharge Information
--- OUTSIDE RECORDS SUMMARY | 2025-03-17 15:31 | XMS_ITS | Clinical Summary ---
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
[2025-03-17 15:51] LABS: Hematocrit 44.4 % (37.0-47.0); Hemoglobin 14.7 g/dL (12.0-15.0); Immature Granulocyte Percent A 0.4 % (0-0.5); Lymphocytes Absolute Auto 2.12 K/mm3 (0.9-3.2); Mean Corpuscular HGB Conc 33.1 g/dl (32-36); Mean Corpuscular Hemoglobin 30.6 pg (26-34); Mean Corpuscular Volume 92.5 fl (80-100); Nucleated Red Blood Cells Absolute Auto 0.000 K/mm3 (0.0-0.012); Nucleated Red Blood Cells Perc 0.0 % (0.0-0.2); Platelet Count Result 275 k/mm3 (150-375); Red Blood Count 4.80 M/mm3 (4.2-5.4); White Blood Count 16.8 K/mm3 (4.5-10.0)
[2025-03-17 15:53] LABS: Add Urine Microscopic? NO; Appearance Urine Clear (Clear); Glucose Urine UA Negative (Negative); Leukocyte Esterase Ur Negative LEU/UL (Negative); Nitrate Urine Negative (Negative); Specific Grav Ur 1.015 (1.001-1.035)
[2025-03-17 15:55] LABS: Estimated CRCL calculation 64 ml/min; Estimated Glomerular Filt Rate > 60
[2025-03-17 16:05] LABS: Alanine Aminotransferase 65 U/L (6-35); Albumin Level 4.7 g/dL (3.5-5.1); Alkaline Phosphatase 90 U/L (38-126); Anion Gap 8 mmol/L (4-12); Aspartate Amino Transferase 63 U/L (14-36); Bilirubin,Total 0.9 mg/dL (0.2-1.3); Blood Urea Nitrogen 15 mg/dL (7-17); Calcium 10.5 mg/dL (8.4-10.2); Carbon Dioxide 26 mmol/L (22-30); Chloride 103 mmol/L (98-107); Estimated CRCL calculation 67 ml/min; Estimated Glomerular Filt Rate > 60; Glucose 95 mg/dL (65-110); Lipase 83 U/L (23-300); Potassium 4.2 mmol/L (3.4-5.0); Sodium 137 mmol/L (137-145); Total Protein 8.0 g/dL (6.3-8.2)
--- OUTSIDE RECORDS SUMMARY | 2025-03-17 17:09 | XMS_ITS | Clinical Summary ---
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
[2025-03-17] MEDS: PIPERACILLIN/TAZOBACTAM SOD 3.375 GM in SODIUM CHLORIDE 0.9% IV 50 ML 100 ML IVPB (17:12)
--- NOTE | 2025-03-17 17:16 | WPDANESEPP ---
Anes - Eval Pre Procedure Procedure: Laparoscopic appendectomy Date/Time: 03/17/25 17:16 Surgeon: elisabeth Preop Diagnosis: Acute appendicitis Pre Op Diagnosis: RLQ pain since this am. Nausea Patient Data Age: 64 Gender: F Height: 1.65 m Weight: 77 kg Last Vital Signs Temp 97.4 F L 03/17/25 14:15 Pulse 72 03/17/25 16:17 Resp 16 03/17/25 16:17 BP 141/83 H 03/17/25 16:17 Pulse Ox 99 03/17/25 16:17 O2 Del Method Room Air 03/17/25 16:17 Allergies Allergy/AdvReac Type Severity Reaction Status Date / Time sulfamethizole Allergy Unknown Hives Verified 03/17/25 15:36 trimethoprim Allergy Unknown Hives Verified 03/17/25 15:36 clindamycin AdvReac Severe contact Verified 03/17/25 15:36 dermatitis/clindamycin phosphate sertraline AdvReac Intermediate abdominal Verified 03/17/25 15:36 pain,diarrhea Home Medications ?Medication ?Instructions ?Recorded ?Confirmed ?Type multivitamin (Daily Multi-Vitamin 1 tablet PO DAILY 12/21/21 02/25/25 History tablet) ascorbic acid (vitamin C) 1,000 mg 1 g PO DAILY 08/03/23 02/25/25 History capsule cholecalciferol (vitamin D3) 50 50 mcg PO DAILY 08/03/23 02/25/25 History mcg (2,000 unit) capsule mecobalamin (vitamin B12) 5,000 5,000 mcg PO DAILY 08/07/24 02/25/25 History mcg chewable tablet estradiol 0.01% (0.1 mg/gram) See Rx Instructions .Route 08/08/24 02/25/25 Rx vaginal cream .COMPLEX #42.5 grams minocycline 50 mg capsule 50 mg PO DAILY #90 caps 01/21/25 02/25/25 Rx terbinafine HCl 250 mg tablet 250 mg PO DAILY #30 tabs 02/25/25 02/25/25 Rx Laboratory Tests 03/17/25 03/17/25 15:42 15:54 WBC 16.8 H K/mm3 (4.5-10.0) RBC 4.80 M/mm3 (4.2-5.4) Hgb 14.7 g/dL (12.0-15.0) Hct 44.4 % (37.0-47.0) MCV 92.5 fl (80-100) MCH 30.6 pg (26-34) MCHC 33.1 g/dl (32-36) RDW 13.5 % (11.5-14.5) Plt Count 275 k/mm3 (150-375) MPV 8.6 fl (7.4-10.4) Immature Gran % (Auto) 0.4 % (0-0.5) Neut % (Auto) 80.2 H % (45.5-73.1) Lymph % (Auto) 12.6 L % (18.3-44.2) [place] % (Auto) 6.4 % (2.6-8.5) Eos % (Auto) 0.0 % (0-4.4) Baso % (Auto) 0.4 % (0.2-1.2) Lymph # (Auto) 2.12 K/mm3 (0.9-3.2) [place] # (Auto) 1.1 H K/mm3 (0.1-0.6) Eos # (Auto) 0.0 K/mm3 (0-0.3) Baso # (Auto) 0.1 K/mm3 (0.0-0.1) Abs Immat Gran (auto) 0.06 H K/mm3 (0.00-0.031) Absolute Neuts (auto) 13.5 H K/mm3 (1.3-6.7) Absolute Nucleated RBC 0.000 K/mm3 (0.0-0.012) Nucleated RBC % 0.0 % (0.0-0.2) Sodium 137 mmol/L (137-145) Potassium 4.2 mmol/L (3.4-5.0) Chloride 103 mmol/L (98-107) Carbon Dioxide 26 mmol/L (22-30) Anion Gap 8 mmol/L (4-12) BUN 15 mg/dL (7-17) Creatinine 0.77 mg/dL 0.80 mg/dL (0.7-1.0) (0.7-1.2) Estim Creat Clear Calc 67 ml/min 64 ml/min Estimated GFR > 60 > 60 (59 - ) (59 - ) Glucose 95 mg/dL (65-110) Lactic Acid 1.4 mmol/L (0.7-2.0) Calcium 10.5 H mg/dL (8.4-10.2) Total Bilirubin 0.9 mg/dL (0.2-1.3) AST 63 H U/L (14-36) ALT 65 H U/L (6-35) Alkaline Phosphatase 90 U/L (38-126) Total Protein 8.0 g/dL (6.3-8.2) Albumin 4.7 g/dL (3.5-5.1) Lipase 83 U/L (23-300) Urine Color Yellow (Yellow) Urine Appearance Clear (Clear) Urine pH 6.5 (5.0-9.0) Ur Specific [place] 1.015 (1.001-1.035) Urine Protein Negative mg/dL (Negative) Urine Glucose (UA) Negative mg/dL (Negative) Urine Ketones Negative mg/dL (Negative) Ur Blood (Man) Negative (Negative) Urine Nitrate Negative (Negative) Urine Bilirubin Negative (Negative) Urine Urobilinogen 0.2 mg/dL (<2.0) Leukocyte Esterase Rfl Negative SHARI/UL (Negative) Patient hx anesthesia problems: none Family hx anesthesia problems: none Results Review: All pre-operative results and documents have been reviewed as part of the pre-operative evaluation. [facility] Past Medical History Medical History (Updated 03/17/25 @ 17:19 by Hadley Moise Jr., CRNA) Mixed hyperlipidemia Metabolic dysfunction-associated fatty liver disease (MAFLD) 3.22.24 u/s Bilateral knee pain Seborrheic keratoses, inflamed Adhesive capsulitis of right shoulder Hyperlipidemia Migraines Pneumonia History of multiple miscarriages History of ectopic Cervical polyp 02.13.20 expelled / exam normal Surgical History Surgical History H/O dilation and curettage Family History Family History Grandparent Diabetes mellitus Father Depression Family history of elevated blood lipids Family history of Alzheimer's disease Mother Patient's mother is in good health Sibling Breast cancer Other Family history of malignant neoplasm of breast Social History Social History Smoking status: Never smoker Second hand tobacco smoke exposure: No Alcohol intake: never Substance use: never Substance use type: does not use Do You Feel Safe in your Home?: Yes Lack of Transportation: No Lack of Food: Never True Current Housing: I Have Housing Concerned About Future Housing: No Difficulty Paying Gas/Electric Bills: No Difficulty Paying for Meds: No Currently Unemployed: No Education: High School Diploma/GED Living arrangements: with family Spiritual care concerns: No Exam Day of Procedure 03/17/25 17:16 Patient weight: normal and overweight
--- NOTE | 2025-03-17 17:37 | PC.NURSE ---
PT advised that she will be going to surgery tonight by Dr. House. Pt advised by this nurse that she will have to get undressed. Pt declined my assistance since her was in the room
--- NOTE | 2025-03-17 18:00 | PC.NURSE ---
Pt. taken to OR via stretcher by exercise equipment repair technicianryan malik. Pt. at bedside with her.
--- NOTE | 2025-03-17 18:11 | PM.IMHP ---
H&P: HPI History of Present Illness Date/Time: 03/17/25 18:11 Chief Complaint: Acute appendicitis Narrative: 64-year-old female presenting to the emergency department complaining of severe right lower quadrant abdominal pain. The patient reports the pain started acutely this morning and has progressively worsened since that time. The patient reports she has had no appetite. Patient also describes some nausea. Patient denies any previous similar symptoms. Workup in the emergency department, including imaging, is significant for acute appendicitis. Review of Systems Review of Systems: All systems reviewed & are unremarkable except as noted in HPI and below PMFSH Past Medical History Medical History Mixed hyperlipidemia Metabolic dysfunction-associated fatty liver disease (MAFLD) 08.11.23 u/s Bilateral knee pain Seborrheic keratoses, inflamed Adhesive capsulitis of right shoulder Hyperlipidemia Migraines Pneumonia History of multiple miscarriages History of ectopic Cervical polyp 02.13.20 expelled / exam normal Surgical History Surgical History H/O dilation and curettage Family History Family History Grandparent Diabetes mellitus Father Depression Family history of elevated blood lipids Family history of Alzheimer's disease Mother Patient's mother is in good health Sibling Breast cancer Other Family history of malignant neoplasm of breast Social History Social History Smoking status: Never smoker Second hand tobacco smoke exposure: No Alcohol intake: never Substance use: never Substance use type: does not use Do You Feel Safe in your Home?: Yes Lack of Transportation: No Lack of Food: Never True Current Housing: I Have Housing Concerned About Future Housing: No Difficulty Paying Gas/Electric Bills: No Difficulty Paying for Meds: No Currently Unemployed: No Education: High School Diploma/GED Living arrangements: with family Spiritual care concerns: No Meds Home Medications and Allergies Home Medications ?Medication ?Instructions ?Recorded ?Confirmed ?Type multivitamin (Daily Multi-Vitamin 1 tablet PO DAILY 12/21/21 02/25/25 History tablet) ascorbic acid (vitamin C) 1,000 mg 1 g PO DAILY 08/03/23 02/25/25 History capsule cholecalciferol (vitamin D3) 50 50 mcg PO DAILY 08/03/23 02/25/25 History mcg (2,000 unit) capsule mecobalamin (vitamin B12) 5,000 5,000 mcg PO DAILY 08/07/24 02/25/25 History mcg chewable tablet estradiol 0.01% (0.1 mg/gram) See Rx Instructions .Route 08/08/24 02/25/25 Rx vaginal cream .COMPLEX #42.5 grams minocycline 50 mg capsule 50 mg PO DAILY #90 caps 01/21/25 02/25/25 Rx terbinafine HCl 250 mg tablet 250 mg PO DAILY #30 tabs 02/25/25 02/25/25 Rx Allergies Allergy/AdvReac Type Severity Reaction Status Date / Time sulfamethizole Allergy Unknown Hives Verified 03/17/25 15:36 trimethoprim Allergy Unknown Hives Verified 03/17/25 15:36 clindamycin AdvReac Severe contact Verified 03/17/25 15:36 dermatitis/clindamycin phosphate sertraline AdvReac Intermediate abdominal Verified 03/17/25 15:36 pain,diarrhea Vital Signs Vital Signs - 24 hr 03/17/25 14:15 03/17/25 16:17 03/17/25 17:20 Temperature 36.3 C L Pulse Rate 78 72 77 Respiratory Rate 16 16 16 Blood Pressure 146/89 H 141/83 H 155/91 H Pulse Oximetry 99 99 100 Oxygen Delivery Room Air Room Air 03/17/25 17:45 Temperature Pulse Rate 85 Respiratory Rate 16 Blood Pressure 151/72 H Pulse Oximetry 98 Oxygen Delivery Exam Const: General: cooperative, acute distress mild and uncomfortable Orientation/consciousness: patient oriented x3 HENMT: Head: normal to inspection, normocephalic and atraumatic Eyes: General: appearance normal, both eyes and all related structures Neck: Neck: normal visual inspection, full ROM and no lymphadenopathy Resp: Auscultation: clear to auscultation bilaterally Cardio: Rate: regular rate Rhythm: regular rhythm GI: Inspection: normal to inspection GI Palp: Yes abdominal tenderness, Yes Soft to palpation, Yes Tenderness to palpation present (GI) and Yes Guarding due to palpation present (GI) Skin: General skin exam: normal color and no rashes or lesions noted Neuro: General: patient oriented x3 and CN's II-XI intact bilaterally Extrem: General: normal to inspection and full ROM H&P: Results Labs Labs: Short CBC 03/17/25 Range/Units 15:42 WBC 16.8 H (4.5-10.0) K/mm3 Hgb 14.7 (12.0-15.0) g/dL Hct 44.4 (37.0-47.0) % Plt Count 275 (150-375) k/mm3 BMP 03/17/25 03/17/25 15:42 15:54 Sodium 137 Potassium 4.2 Chloride 103 Carbon Dioxide 26 BUN 15 Creatinine 0.77 0.80 Glucose 95 Calcium 10.5 H Liver Function 03/17/25 Range/Units 15:42 Total Bilirubin 0.9 (0.2-1.3) mg/dL AST 63 H (14-36) U/L ALT 65 H (6-35) U/L Alkaline Phosphatase 90 (38-126) U/L Albumin 4.7 (3.5-5.1) g/dL Urine 03/17/25 Range/Units 15:42 Urine Color Yellow (Yellow) Urine Appearance Clear (Clear) Urine pH 6.5 (5.0-9.0) Ur Specific [place] 1.015 (1.001-1.035) Urine Protein Negative (Negative) mg/dL Urine Glucose (UA) Negative (Negative) mg/dL Imaging CT scan - abdomen: My impression: Acute uncomplicated appendicitis Assessment and Plan Assessment and plan (1) Acute appendicitis: Code(s): K35.80 - Unspecified acute appendicitis Status: Acute Assessment and Plan: will set up for emergent appendectomy, NPO, IV antibiotics
--- NOTE | 2025-03-17 18:17 | WPDHPUPDATE1 ---
History and Physical Update Update Date/Time: 03/17/25 18:17 History and Physical has been reviewed, including an updated exam of the patient. There are NO changes in the patient's condition. Risks, benefits, and alternatives have been discussed and questions answered. Patient agrees to proceed with procedure.
[2025-03-17] MEDS: LACTATED RINGERS 1,000 ML 30 ML IV CONT (18:23)
[2025-03-17] MEDS: BUPIVACAINE/EPINEPHRINE 0.5% 30 ML VIAL INFILTRATE (18:54)
--- NOTE | 2025-03-17 19:01 | P.OP_ITS ---
Procedure Note - Detailed Date of Procedure 03/17/25 Pre-op Diagnosis Acute appendicitis Post-op Diagnosis Same Procedure Performed laparoscopic appendectomy Surgeon Devora Agustin MD Anesthesia General and Local Indications 64-year-old female presenting to the emergency department with acute appendicitis. Findings Acute uncomplicated appendicitis Description of Procedure The patient was taken to the operating room and placed in the supine position. After adequate induction of general anesthesia, the patient was prepped and draped in the normal sterile fashion. A time-out was then done to verify the patient's identity, as well as the procedure being performed. I began by making a 5 mm incision in the infraumbilical region, through this a Veress needle was placed in the peritoneal cavity. CO2 gas was then insufflated and after adequate pneumoperitoneum was achieved the Veress needle was removed. Then placed a 5 mm Optiview trocar under direct visualization into the peritoneal cavity. I then insufflated through this trocar site and the endoscope was placed into the trocar. Under direct visualization, I placed 2x further 5 mm suprapubic port as well as an additional 12 mm port in the left lower abdomen. There was noted to be some adhesions in the lower midline and right lower quadrant. These were taken down under direct visualization with the cautery scissors. Once free of adhesions, I identified the cecum. I retracted the cecum both medially and superiorly allowing me to expose the appendix. The appendix was noted to be very dilated and inflamed. The appendix was noted to be very adherent to the right lateral sidewall as well as the ileum. I was able to bluntly dissect the appendix from these adhesions. I then was able to locate the base of the appendix with the cecum. I created a window with the [place] dissector between the appendix itself and the mesoappendix. I then transected the mesoappendix with a white vascular staple load. The Endo-FIFI was then reloaded with a blue staple load and I transected the base of the appendix. Once the specimen was completely detached, an endo-pouch was placed into the 12 mm port site and the specimen was removed through the endo-pouch. The appendiceal specimen will be sent to pathology for further review. I then copiously irrigated the right lower quadrant. Hemostasis was noted at both staple lines no other pathology was seen in this area. I then moved the camera to the suprapubic port to check our its port of entry. No iatrogenic injury or other pathology was noted in the upper abdomen. I then closed the 12 mm port site with a Elbert code and 0 Vicryl suture under direct visualization. At this point, the abdomen was desufflated and all ports were removed. All port sites were closed with 4 Monocryl subcuticular suture. Dermabond was placed on all wounds. The patient tolerated the procedure well and was extubated in the operating room postop. She will be sent to the recovery room in stable condit ion. Estimated Blood Loss 10 Drains No Packing No Pathology Yes Complications No immediate complications Condition Stable Disposition PACU [facility] Billing Surgery - Charge Forward: Surgery Billing
--- NOTE | 2025-03-17 19:11 | S_PTH ---
PATIENT: Alejandra Rosales LOC: [facility] U#:[id number] AGE/SX: 64/F ROOM: RE03/17/[address]: Chriss House MD : 1960 BED: DIS: 03/17/2025 SPEC #: [id number] RECD: 03/18/25 07:31 STATUS: INESSA REQ #: [id number] NAVDEEP: 03/17/25 19:[address]: Devora Agustin DEPT: [facility] Surgical RECD BY: Christophe Walker ENTERED: 03/18/25 07:31 SP TYPE: Surgical OTHR DR: MD Chriss Mcadams MD Tissues: A - Appendix Procedures: Hematoxylin and Eosin Stain Gross and Microscopic Level 3
[2025-03-17] MEDS: fentaNYL CITRATE INJ (*CRX) 100 MCG/2 ML VIAL 25 MCG IV PUSH ×4 (19:37→20:05)
[2025-03-17] MEDS: oxyCODONE HCL (*CRX) 5 MG TAB IR PO (20:24)
== END 2025-03-17 21:02 | disposition home or self-care (01) ==
LOC: ANHED 18:30 → ANHSURGERY 03-19 06:34
PROVIDERS: Nurse Practitioner Adult Health; Surgery; PCP Family Medicine; Visit Provider Emergency Medicine
PROC: 0DTJ4ZZ Resection of Appendix, Percutaneous Endoscopic Approach (ICD-10-PCS; CPT 44970; principal; 2025-03-17 18:15)
DX: K35.30 Acute appendicitis with localized peritonitis, without perforation or gangrene (principal)
CPT/HCPCS: 44970; 36415; 71046; 74177; 80053; 81003; 83605; 83690; 85025; 88304; 96365; 99285; A9270; J0330; J1100; J2003; J2405; J2543; J2704; J3010; J7120; Q9967

== ENCOUNTER 2025-04-21 07:58 | Outpatient (CLI) | payer BC, SELFPAY ==
--- NOTE | ~2025-04-21 | CT_ITS ---
EXAMINATION:CT diagnostic chest wo con DATE: 04/21/2025 08:23 INDICATION: Solitary pulmonary nodule. TECHNIQUE: Computed tomography (CT) of the chest was performed without intravenous contrast. Automated exposure control and iterative reconstruction technique were employed. The dose-length product (DLP) was 83.13 mGy-cm. COMPARISON: CT abdomen and pelvis 03/17/2025 FINDINGS: There is a 4 mm nodule in right lung lower lobe. Calcified left lung nodules and calcified left hilar lymph nodes are consistent with old granulomatous disease. There is a 2 mm nodule in left upper lobe. No pleural effusion. The heart size is normal. No pericardial effusion. There is diffuse hepatic steatosis. There is severe thoracic spondylosis. IMPRESSION: 1. Small pulmonary nodules, likely benign. Reviewed, dictated and finalized at location E. L OFFICER
--- OUTSIDE RECORDS SUMMARY | 2025-04-21 08:06 | XMS_ITS | Clinical Summary ---
Author Organization [facility] [place] [address] Address [address] [place] [address] Care Team Providers Care Community Services Officer Name Role Phone Evon Miranda MD Primary [...] on file Legal Sex Female 10:00 PM [employer] Gender Identity Not on file Sexual Orientation Not on file Plan of Treatment Not on file Insurance [facility] Care Teams Community Services Officer Relationship Specialty Start Date End Date Evon Miranda MD PCP - General Family Medicine 02/06/19
== END 2025-04-21 07:59 | disposition home or self-care (01) ==
PROVIDERS: PCP Family Medicine; Visit Provider Family Medicine
DX: R91.1 Solitary pulmonary nodule (principal); Z77.090 Contact with and (suspected) exposure to asbestos; R91.8 Other nonspecific abnormal finding of lung field
CPT/HCPCS: 71250